=== PATIENT | male | born 1970 | race Caucasian/White ===

== ENCOUNTER 2017-03-08 14:55 | Emergency (ER) | payer SELFPAY ==
[2017-03-08] MEDS ORDERED: Lidocaine 1% MPF* 2 ML VIAL INJ ONE ×2 (16:40→17:11)
--- NOTE | 2017-03-08 17:42 | RAD ---
Indication: Left fifth digit dislocation. 3 views of left fifth digit demonstrates volar dislocation of the middle phalanx of the fifth digit. Tiny avulsion of the volar plate of the middle phalanx is suggested. IMPRESSION: Volar dislocation middle phalanx fifth digit.
[2017-03-08 17:49] VITALS: BP 148/108
--- NOTE | 2017-03-08 18:31 | RAD ---
Indication: Post reduction middle phalanx dislocation of the left fifth digit, traumatic 2 views of left fifth digit demonstrates reduction of the previously identified dislocation of the middle phalanx of the left fifth digit. There may be a small volar plate avulsion noted. IMPRESSION: Reduction of previously known volar dislocation of the middle phalanx of the fifth digit.
--- NOTE | 2017-03-08 20:48 | UC ---
Lucas Florez Thomas, scribed for Rivas Jones MD on 03/08/17 at 1641 . Upper Extremity HPI - HPI Summary HPI Summary: The patient is a 47 year old male presenting to Urgent Care complaining of left pinky pain that began last night status post an injury that occurred when he was wrestling with his son. The pain is constant. The pain is rated 4/10. The pain is aggravated by touch. It is alleviated by nothing. He is employed as a hvac mechanic. - History of Current Complaint Chief Complaint: UCUpperExtremity Stated Complaint: FINGERS INJURIES Time Seen by Provider: 03/08/17 16:23 Hx Obtained From: Patient Onset/Duration: Lasting Days - 1, Still Present Severity Currently: Moderate Pain Intensity: 4 Pain Scale Used: 0-10 Numeric Location Of Pain: Is Discrete @ - left pinky Aggravating Factor(s): Other - Touch Alleviating Factor(s): Nothing Associated Signs And Symptoms: Negative: Fever Related History: Other: - Injured wrestling with son - Allergies/Home Medications Allergies/Adverse Reactions: Allergies Allergy/AdvReac Type Severity Reaction Status Date / Time No Known Allergies Allergy Verified 03/08/17 15:15 Home Medications: Home Medications Ibuprofen [Ibuprofen 200] 800 mg PO Q8HR PRN 03/08/17 [History Confirmed ] PMH/Surg Hx/FS Hx/Imm Hx Previously Healthy: No - HTN; NEGATIVE: DM Other History Of: Negative For: Anticoagulant Therapy - Surgical History Surgical History: Yes Surgery Procedure, Year, and Place: right inguinal hernia repiar 04/2013 - Family History Known Family History: Positive: Other - Patient denies relevant FHx - Social History Occupation: Employed Full-time - hvac mechanic Lives: With Family Alcohol Use: Daily Alcohol Amount: 1-2 BEERS PER DAY Substance Use Type: None Smoking Status (MU): Current Every Day Smoker Type: Cigarettes Amount Used/How Often: 1/2 PPD X 20 YEARS - Immunization History Most Recent Influenza Vaccination: unknown Review of Systems Constitutional: Other - NEGATIVE: fever Musculoskeletal: Other: - Left pinky pain Is Patient Immunocompromised?: No All Other Systems Reviewed And Are Negative: Yes Physical Exam Triage Information Reviewed: Yes Vital Signs: Initial Vital Signs Temp 98.7 F 03/08/17 15:11 Pulse 91 03/08/17 15:11 Resp 14 03/08/17 15:11 BP 146/94 03/08/17 15:11 Pulse Ox 97 03/08/17 15:11 Vital Signs Reviewed: Yes - Additional Comments VITAL SIGNS: Reviewed. GENERAL: Patient is a well-developed and nourished male who is lying comfortable in the stretcher. Patient is not in any acute respiratory distress. HEAD AND FACE: Normocephalic EYES: PERRLA, EOMI x 2. EARS: Hearing grossly intact. MOUTH: Oropharynx within normal limits. NECK: Supple, trachea is midline, no adenopathy, no JVD, no carotid bruit. CHEST: Symmetric, no tenderness at palpation LUNGS: Clear to auscultation bilaterally. No wheezing or crackles. CVS: Regular rate and rhythm, S1 and S2 present, no murmurs or gallops appreciated. ABDOMEN: Soft, non-tender. Bowel sounds are normal. No abdominal abnormal pulsations. EXTREMITIES: His left pinky finger is twisted. Full ROM in all major joints, no edema, no cyanosis or clubbing. NEURO: Alert and oriented x 3. No acute neurological deficits. Speech is normal and follows commands. SKIN: Dry and warm Procedures - Procedure Summary Procedure Summary: FINGER BLOCK: I did a finger block with lidocaine without epinephrine. REDUCTION: I reduced the dislocation of the left pinky finger. Diagnostics - Radiology Finger XR 16:23 Xray Interpretation: Positive (See Comments) - Volar dislocation middle phalanx fifth digit. Dr. Jones has reviewed this report. Radiology Interpretation Completed By: Radiologist Finger XR 17:32 Xray Interpretation: No Acute Changes - Reduction of previously known volar dislocation of the middle phalanx of the fifth digit. Dr. Jones has reviewed this report. Radiology Interpretation Completed By: Radiologist Upper Extremity Course/Dx - Course Course Of Treatment: The patient is a 47 year old male presenting to Urgent Care complaining of left pinky pain that began last night status post an injury that occurred when he was wrestling with his son. The pain is constant. The pain is rated 4/10. The pain is aggravated by touch. It is alleviated by nothing. He is employed as a hvac mechanic. I did a finger block with lidocaine without epinephrine. Finger XR 16:23 shows Volar dislocation middle phalanx fifth digit. I reduced the dislocation. Finger XR 17:32 shows Reduction of previously known volar dislocation of the middle phalanx of the fifth digit. The patient is diagnosed with Finger dislocation. The patient will be discharged home and instructed to follow up with primary care. - Differential Dx/Diagnosis Provider Diagnoses: Finger dislocation Discharge - Discharge Plan Condition: Stable Disposition: HOME Patient Education Materials: Finger Dislocation (ED) Referrals: Pablo Gold MD [Primary Care Provider] - 3 Days Additional Instructions: Follow up with your primary care physician in 3 days. Return to urgent care for any new or worsening symptoms. The documentation as recorded by the Lucas silver Thomas accurately reflects the service I personally performed and the decisions made by Robert whitaker Walter, MD.
== END 2017-03-08 18:21 | disposition home or self-care (01) ==
LOC: UCEAST 14:55
DX: S63.257A Unspecified dislocation of left little finger, initial encounter (principal); X58.XXXA Exposure to other specified factors, initial encounter; Y93.72 Activity, wrestling; Y92.9 Unspecified place or not applicable; F17.210 Nicotine dependence, cigarettes, uncomplicated
CPT/HCPCS: 73140; 99211; G0463